=== PATIENT | male | born 1975 | race Caucasian/White ===

== ENCOUNTER 2016-11-12 20:13 | Emergency (ER) | payer OTHER ==
[2016-11-12 20:42] VITALS: BP 116/70; PULSE 78; TEMP 98; BMI 31.3
[2016-11-12] MEDS ORDERED: KETOROLAC TROMETHAMINE 60 MG/2 ML VIAL IM ONE (21:41)
[2016-11-12] MEDS ORDERED: KETOROLAC TROMETHAMINE 60 MG/2 ML VIAL ONE (21:47)
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
== END 2016-11-12 22:29 | disposition home or self-care (01) ==
LOC: JERFT 20:13
DX: S16.1XXA Strain of muscle, fascia and tendon at neck level, initial encounter (principal); S60.051A Contusion of right little finger without damage to nail, initial encounter; X50.1XXA Overexertion from prolonged static or awkward postures, initial encounter; X08.8XXA Exposure to other specified smoke, fire and flames, initial encounter; Y93.89 Activity, other specified; Y92.89 Other specified places as the place of occurrence of the external cause; Y99.0 Civilian activity done for income or pay
CPT/HCPCS: 99281-25

== ENCOUNTER 2018-01-27 22:15 | Emergency (ER) | payer OTHER ==
[2018-01-27 23:08] VITALS: BP 145/88; PULSE 71; TEMP 98.7; BMI 30.4
[2018-01-27] MEDS ORDERED: KETOROLAC TROMETHAMINE 60 MG/2 ML VIAL IM ONE (23:16)
[2018-01-27] MEDS ORDERED: CYCLOBENZAPRINE HCL 10 MG TABLET (FP) PO ONE (23:16)
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
[2018-01-28] MEDS ORDERED: KETOROLAC TROMETHAMINE 60 MG/2 ML VIAL ONE (00:06)
[2018-01-28] MEDS ORDERED: CYCLOBENZAPRINE HCL 10 MG TABLET (FP) ONE (00:06)
== END 2018-01-28 00:10 | disposition home or self-care (01) ==
LOC: JER 22:15
DX: S16.1XXA Strain of muscle, fascia and tendon at neck level, initial encounter (principal); X50.0XXA Overexertion from strenuous movement or load, initial encounter; Y93.89 Activity, other specified; Y92.89 Other specified places as the place of occurrence of the external cause; Y99.0 Civilian activity done for income or pay; X08.8XXA Exposure to other specified smoke, fire and flames, initial encounter
CPT/HCPCS: 72050-TC-FY; 99281-25